=== PATIENT | male | born 1945 | race Caucasian/White ===

== ENCOUNTER 2016-12-23 15:35 | Emergency (ER) | payer OTHER, BC ==
[~2016-12-23] VITALS: Ht 188 cm; Wt 135.2 kg
[2016-12-23 18:27] VITALS: BP 161/62
== END 2016-12-23 18:27 | disposition home or self-care (01) ==
LOC: EME 15:35
PROC: 0HQ1XZZ Repair Face Skin, External Approach (ICD-10-PCS; principal; 2016-12-23)
DX: S00.83XA Contusion of other part of head, initial encounter (principal); S01.81XA Laceration without foreign body of other part of head, initial encounter; S40.011A Contusion of right shoulder, initial encounter; S43.51XA Sprain of right acromioclavicular joint, initial encounter; W18.30XA Fall on same level, unspecified, initial encounter; J44.9 Chronic obstructive pulmonary disease, unspecified; F17.200 Nicotine dependence, unspecified, uncomplicated
CPT/HCPCS: 70450; 71010; 73030; 99281; 99284